=== PATIENT | male | born 1960 | race Caucasian/White ===

== ENCOUNTER 2017-11-28 15:38 | Emergency (ER) | payer OTHER ==
[~2017-11-28] VITALS: Ht 162.6 cm; Wt 82.1 kg
[~2017-11-28 15:38] MED LIST: ASPI81EC PO; FAMO20 PO; HYDACE5 PO; HYDACE7.5 PO; HYDCHL25 PO; HYDCHL50 PO; LISI20 PO; LOSHYD PO; OMEP20ER PO; PROM25 PO; RXTRAM50 PO; TRAM50 PO; TRAZ150T57 PO; TRAZ50 PO; VITNEPH PO
== END 2017-11-28 16:00 | disposition home or self-care (01) ==
LOC: ER 15:38
DX: L23.7 Allergic contact dermatitis due to plants, except food (principal); Z79.899 Other long term (current) drug therapy; I10 Essential (primary) hypertension; Z87.891 Personal history of nicotine dependence
CPT/HCPCS: 96374; 99282-25; J3301

== ENCOUNTER 2018-06-25 13:32 | Inpatient (IN) | payer OTHER ==
[~2018-06-25] VITALS: Ht 162.6 cm; Wt 74.8 kg
[2018-06-25 14:22] LABS: BASOPHILS ABSOLUTE AUTO 0.06 K/mm3 (0.00-0.23); BASOPHILS PERCENT AUTO 1 % (0-2); EOSINOPHILS ABSOLUTE AUTO 0.08 K/mm3 (0.00-0.68); EOSINOPHILS PERCENT AUTO 2 % (0-6); Hematocrit 43.4 % (37.0-53.0); Hemoglobin 13.4 g/dL (13.5-17.5); IMMATURE GRAN ABSOLUTE AUTO 0.01 K/mm3 (0.00-0.10); IMMATURE GRAN PERCENT AUTO 0 % (0-1); LYMPHOCYTES ABSOLUTE AUTO 1.31 K/mm3 (0.84-5.20); LYMPHOCYTES PERCENT AUTO 26 % (21-46); MONOCYTES ABSOLUTE AUTO 0.34 K/mm3 (0.16-1.47); MONOCYTES PERCENT AUTO 7 % (4-13); Mean Corpuscular HGB 25.8 pg (26.0-34.0); Mean Corpuscular HGB Conc 30.9 g/dL (31.5-36.5); Mean Corpuscular Volume 84 fL (80-100); Mean Platelet Volume 10.2 fL (9.1-12.4); NEUTROPHILS ABSOLUTE AUTO 3.28 K/mm3 (1.96-9.15); NEUTROPHILS PERCENT AUTO 65 % (41-73); Platelet Count 231 K/mm3 (150-400); RDW Coefficient Variation 14.9 % (11.7-14.2); RDW Standard Deviation 45.1 fL (35.1-46.3); White Blood Cell Count 5.08 K/mm3 (4.00-11.30)
[2018-06-25 14:32] LABS: Alanine Aminotransfer (ALT/SGP 34 U/L (12-78); Albumin, Blood 3.2 g/dL (3.4-5.0); Alk Phos 72 U/L (50-136); Anion Gap 6 mmol/L (6-16); Aspartate Aminotrans (AST/SGOT 39 U/L (12-37); Bilirubin, Total 0.7 mg/dL (0.1-1.0); Blood Urea Nitrogen 26 mg/dL (8-24); Bun/Creatinine Ratio 24.3 (12.0-20.0); CO2, Blood 24 mmol/L (21-32); Calcium, Blood 8.3 mg/dL (8.5-10.1); Chloride, Blood 110 mmol/L (98-108); Creatinine, Blood 1.07 mg/dL (0.60-1.20); Globulin, Blood 3.3 g/dL (2.2-4.0); Glomerular Filtration Rate >60 (60-); Glucose, Blood 139 mg/dL (70-99); Potassium, Blood 4.2 mmol/L (3.5-5.5); Sodium, Blood 140 mmol/L (136-145); Total Protein, Blood 6.5 g/dL (6.4-8.2); Troponin I 0.071 ng/mL (0.000-0.040)
--- NOTE | 2018-06-25 19:40 | NUR ---
ASSUMED CARE PT RESTING IN ROOM COMFORTABLY AT THIS TIME. PER DAY SHIFT PT ARRIVED JUST PRIOR TO SHIFT CHANGE. PT IS A0X4 AND ABLE TO AMBULATE IN ROOM W/O ASSIST. PT CAME TO ED W/ INCREASED SOB AND HIGH BNP. PT REPORTS SOME SOB W/ EXERTION. RESP EVEN UNLBAORED AT REST ON 2L NC W/ SATS >92%. DENIES PAIN AT THIS TIME. DENIES OTHER NEEDS. CALL LIGHT IS IN REACH.
--- NOTE | 2018-06-25 19:45 | NUR ---
ARRIVAL AND SHIFT SUMMARY PT ARRIVE TO UNIT APPROX. 1845 VIA [facility] PT ABLE TO TRANSFER FROM [facility] TO BED. PT BREATHING RAPID SHALLOW BREATHS ON ARRIVAL AND REPORTS FEELING SHORT OF BREATH. 2L OXYGEN VIA N.C. IN PLACE AND SATS 99-100. AFTER GETTING PT SETTLED IN BED RESIPRATORY RATE SLOWED DOWN. ORIENTED PT TO ROOM, UNIT AND POLICIES. TELEMETRY PLACE. ASSESSMENT COMPLETED AND VITAL SIGNS STABLE. PT A&OX4. PT REPORTS BEING HUNGRY AT THIS TIME AND THIS WAS ONLY COMPLIANT. NO S/SX OF ACUTE DISTRESS. BED IN LOW POSITION, CALL LIGHT IN REACH AND PT DENIES ANY NEEDS AT THIS TIME. WILL CONTINUE TO MONITOR UNTIL HANDOFF TO NIGHTSHIFT RN.
[2018-06-26 04:13] LABS: BASOPHILS ABSOLUTE AUTO 0.07 K/mm3 (0.00-0.23); BASOPHILS PERCENT AUTO 1 % (0-2); EOSINOPHILS ABSOLUTE AUTO 0.15 K/mm3 (0.00-0.68); EOSINOPHILS PERCENT AUTO 3 % (0-6); Hematocrit 42.5 % (37.0-53.0); Hemoglobin 13.3 g/dL (13.5-17.5); IMMATURE GRAN ABSOLUTE AUTO 0.01 K/mm3 (0.00-0.10); IMMATURE GRAN PERCENT AUTO 0 % (0-1); LYMPHOCYTES PERCENT AUTO 35 % (21-46); MONOCYTES PERCENT AUTO 7 % (4-13); Mean Corpuscular HGB 25.7 pg (26.0-34.0); Mean Corpuscular HGB Conc 31.3 g/dL (31.5-36.5); Mean Corpuscular Volume 82 fL (80-100); Mean Platelet Volume 10.2 fL (9.1-12.4); NEUTROPHILS ABSOLUTE AUTO 2.89 K/mm3 (1.96-9.15); NEUTROPHILS PERCENT AUTO 53 % (41-73); Platelet Count 226 K/mm3 (150-400); RDW Coefficient Variation 14.9 % (11.7-14.2); Red Blood Cell Count 5.17 M/mm3 (4.30-5.90); White Blood Cell Count 5.42 K/mm3 (4.00-11.30)
[2018-06-26 04:38] LABS: Anion Gap 7 mmol/L (6-16); Blood Urea Nitrogen 22 mg/dL (8-24); Bun/Creatinine Ratio 18.8 (12.0-20.0); CO2, Blood 27 mmol/L (21-32); Calcium, Blood 8.6 mg/dL (8.5-10.1); Chloride, Blood 104 mmol/L (98-108); Creatinine, Blood 1.17 mg/dL (0.60-1.20); Glomerular Filtration Rate >60 (60-); Glucose, Blood 104 mg/dL (70-99); Potassium, Blood 3.7 mmol/L (3.5-5.5); Sodium, Blood 138 mmol/L (136-145); Troponin I 0.086 ng/mL (0.000-0.040)
--- NOTE | 2018-06-26 06:04 | NUR ---
SHIFT SUMMARY PT SLEEPING IN ROOM COMFORTABLY AT THIS TIME. NO ACUTE CHANGES IN STATUS T/O NIGHT. PT TOOK OXYGEN OFF SOMETIME DURING NIGHT, O2 SAT CHECKED, PT SATTING AT 97% ON RA. O2 LEFT OFF OF PT AT THIS TIME. PT EDUCATED TO CALL RN IF BECOMES SOB. PT HAS HAD SIGNIFICANT URINE OUTPUT OVERNIGHT D/T LASIX. DENIES PAIN. CALL LIGHT IS IN REACH.
--- NOTE | 2018-06-26 07:55 | NUR ---
AM ASSESSMENT: Pt resting in bed. Denies pain at this time. A/O x4. LS diminished in bases. Bt positive. Pulses palp. Pt has dry cough and is tachipnic. Pt states that it has been hard to breath in sleep since he fractured his ribs last month. IV to R AC has infiltrated, will D/C and place new IV. Pt Denies other needs at this time. Will monitor. Call light in reach.
--- NOTE | 2018-06-26 09:25 | NUR ---
Echocardiogram using 0.45ml of Definity contrast performed.
--- NOTE | 2018-06-26 16:15 | NUR ---
TRANSFER: Report called to medical floor RN. Pt just out of shower. States that he had a large BM and that has lower abd hurt after he had the BM. States that pain is fine at this time. VSS. Pt still having a dry caugh and tachipnic at times. has voided a large amount of urine this shift. Pt transfered via w/c. Stable at time of transfer.
--- NOTE | 2018-06-26 17:51 | NUR ---
SHIFT SUMMARY PCU TRANSFER THIS AFTERNOON. PATIENT DENIES NAUSEA OR SHORTNESS OF BREATH. MEDICATED X 1 FOR PAIN. SETTLED INTO ROOM, EATING DINNER. CALL LIGHT IN REACH, WILL CONTINUE TO MONITOR.
--- NOTE | 2018-06-27 03:59 | NUR ---
SHIFT SUMMARY NO ACUTE CHANGES TO PRESENT THIS SHIFT. PT IS A&O, INDEPENDANT IN RM. AWAKE AT START OF SHIFT WATCHING TV AND TALKING ON PHONE. USED URINALS AT BS FREQUENTLY FIRST PART OF SHIFT. DIURETICS GIVEN EARLIER IN THE DAY. PT REPORTED SWELLING IN LEGS AND FEET "DOWN FROM WHAT THEY WERE". PT ADMITTED FOR ACUTE RESPIRATORY FAILURE WITH HX OF CHF. SPEECH SLIGHTLY SLURRED; PER SHIFT REPORT, THIS IS PT'S BASLINE. HX OF METH AND ETOH ABUSE. PT HAS BEEN PLEASANT AND CO-OP. NO C/O. REQUESTED ICE CREAM AT HS; GIVEN. GRATEFUL FOR CARE. DENIED FURTHER NEEDS. PT REPORT TYLENOL GIVEN PRIOR TO START OF NOC SHIFT; REPORTED IT EFFECTIVE. GENERAL ACHES AND PAINS. CALL LT IN REACH. ABLE TO MAKE NEEDS KNOWN.
[2018-06-27 06:04] LABS: Calcium, Blood 8.7 mg/dL (8.5-10.1); Creatinine, Blood 1.37 mg/dL (0.60-1.20); Potassium, Blood 3.6 mmol/L (3.5-5.5)
--- NOTE | 2018-06-27 15:48 | NUR ---
SHIFT SUMMARY NO ACUTE CHANGES. PATIENT INDEPENDENT IN ROOM. REPORTS COUGH IS RESOLVING. DR. MOTA CONSULTED ON PATIENT TODAY. NEW MEDICATION ORDERS GIVEN. PATIENT DENIES PAIN, NAUSEA, OR SHORTNESS OF BREATH. CALL LIGHT IN REACH, WILL CONTINUE TO MONITOR.
--- NOTE | 2018-06-27 19:07 | NUR ---
Roderick was tearful and talkative. He tells me that he has been told that he doesn't have long to live. "It's my fault. I accept that I did this to myself." He admits to using meth most of his life as well as etoh and niccotine. He was especially tearful when talking about his love for his nephew and his hope that he is alive for nephew's wedding in November. Per corporate recruiter notes from this morning, several interventions have been offered and Roderick had agreed to anything that will save his life. I suspect, after years of non-compliance and denial, Roderick may have finally realized his mortatity and judgement errors. He responded well to being heard and affirmed. He said it was "really good to finally talk to someone about all this." He appeared to feel comfortable with me and we had an easy rapport. I provided gentle assessment counselor and assurance. Encouraged making the most of his time with family and frequent expresions of love. He agreed he will do this. He smiled easily by end of visit. He is non-alevism. I will remain available.
--- NOTE | 2018-06-28 04:51 | NUR ---
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 PT AAOX3 AND INDEPENDENT IN ROOM. PT DIURESING WELL WITH A NEGATIVE FLUID BALANCE OF OVER 2000 ML. PT DOES STILL REPORT SOME SOB WHEN AMBULATING IN THE ROOM BUT ABLE TO REMAIN ON ROOM AIR. VSS, WILL CONTINUE TO MONITOR.
--- NOTE | 2018-06-28 06:20 | NUR ---
15 BEAT RUN OF V-TACH REPORTED BY CREATIVE ASSISTANT. ASSESSED PT, PT DENIES CP OR SOB. STATES "I FEEL FINE". THIS IS PT'S FIRST RUN OF V-TACH. WILL CONTINUE TO MONITOR.
--- NOTE | 2018-06-28 15:59 | NUR ---
SHIFT SUMMARY NO ACUTE CHANGES. PATIENT MEDICATED X1 FOR HEADACHE. DENIES NAUSEA OR SHORTNESS OF BREATH. POSSIBLE TRANFER TO [facility] OR POSSIBLE DISCHARGE WITH OUTPATIENT [facility] CARDIOLOGY FOLLOW UP. PATIENT INDEPENDENT IN ROOM. CALL LIGHT IN REACH, WILL CONTINUE TO MONITOR.
--- NOTE | 2018-06-29 05:39 | NUR ---
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 PT AAOX4 AND INDEPENDENT IN ROOM. NSR ON TELE. SOB AT TIMES WITH EXERTION. TREATED HEADACHE X1 WITH TYLENOL. VSS, WILL CONTINUE TO MONITOR.
[2018-06-29 06:22] LABS: Anion Gap 7 mmol/L (6-16); Blood Urea Nitrogen 27 mg/dL (8-24); Bun/Creatinine Ratio 21.8 (12.0-20.0); CO2, Blood 29 mmol/L (21-32); Calcium, Blood 8.7 mg/dL (8.5-10.1); Chloride, Blood 102 mmol/L (98-108); Creatinine, Blood 1.24 mg/dL (0.60-1.20); Glomerular Filtration Rate >60 (60-); Glucose, Blood 118 mg/dL (70-99); Potassium, Blood 3.7 mmol/L (3.5-5.5); Sodium, Blood 138 mmol/L (136-145)
[2018-06-29] MEDS ORDERED: ASPI81CH PO (13:31)
[2018-06-29] MEDS ORDERED: ATOR10 PO (13:32)
[2018-06-29] MEDS ORDERED: FURO80 PO (13:33)
[2018-06-29] MEDS ORDERED: Toprol Xl25 MG PO (13:34)
[2018-06-29] MEDS ORDERED: ENTRESTO 24 MG1 EACH PO (13:35)
[2018-06-29] MEDS ORDERED: Micro-K10 MEQ (13:36)
--- NOTE | 2018-06-29 14:15 | NUR ---
PT DISCHARGED PT DISCHARGED AT 1415. PT IN STABLE CONDITION WITH VSS. PT EDUCATED ON ED INSTRUCTIONS & FOLLOW UP APPOINTMENTS. PT INFORMED THAT [facility] REP WILL CONTACT HIM TO BE FITTED. PT STATES NO FURTHER QUESTIONS. PT WHEELED OUT & DRIVEN HOME BY FRIEND.
== END 2018-06-29 14:39 | disposition home or self-care (01) | DRG 280 ==
LOC: ER 13:32 → MEDS 17:55 → PCU 17:55 → MEDS 06-26 16:59 → ENPENDDIS 06-29 12:21 → MEDS 06-29 14:39
PROVIDERS: Internal Medicine; Physician Assistant; ADMIT Internal Medicine
DX: I13.0 Hypertensive heart and chronic kidney disease with heart failure and stage 1 through stage 4 chronic kidney disease, or unspecified chronic kidney disease (principal); I21.A1 Myocardial infarction type 2; J96.90 Respiratory failure, unspecified, unspecified whether with hypoxia or hypercapnia; I50.43 Acute on chronic combined systolic (congestive) and diastolic (congestive) heart failure; Q25.1 Coarctation of aorta; N17.9 Acute kidney failure, unspecified; N18.2 Chronic kidney disease, stage 2 (mild); B18.2 Chronic viral hepatitis C; F10.10 Alcohol abuse, uncomplicated; F15.10 Other stimulant abuse, uncomplicated; F19.10 Other psychoactive substance abuse, uncomplicated; I25.10 Atherosclerotic heart disease of native coronary artery without angina pectoris; I27.20 Pulmonary hypertension, unspecified; I35.1 Nonrheumatic aortic (valve) insufficiency; I42.9 Cardiomyopathy, unspecified; I71.9 Aortic aneurysm of unspecified site, without rupture; Z91.14 Patient's other noncompliance with medication regimen; Z91.19 Patient's noncompliance with other medical treatment and regimen; Z95.2 Presence of prosthetic heart valve; E66.9 Obesity, unspecified; Z87.891 Personal history of nicotine dependence; Z68.32 Body mass index [BMI] 32.0-32.9, adult; K21.9 Gastro-esophageal reflux disease without esophagitis
CPT/HCPCS: 36415; 71260; 80048; 80053; 83880; 84484; 85025; 93005; 93010; 96374-59; 96375-59; 99285-25; A9270; C8929; J1650; J1940; Q9957; Q9967

== ENCOUNTER → 2018-07-02 | Outpatient (CLI) | payer OTHER ==
[~2018-07-02] MED LIST changes: +ASPI81CH PO; +ATOR10 PO; +ENTRESTO 24 MG1 EACH PO; +FURO80 PO; +Micro-K10 MEQ; +Toprol Xl25 MG PO
[2018-07-02 15:13] LABS: Source, Urine Clean Catch
[2018-07-02 16:03] LABS: Bilirubin, Urine Neg (Neg); Blood, Urine 5+ (Neg); Glucose Qualitative, Urine Neg (Neg); Ketones, Urine 1+ (Neg); Leukocyte Esterase, Urine 1+ (Neg); Nitrite, Urine Neg (Neg); Protein, Urine 2+ (Neg); Urobilinogen, Urine 1+ (Normal)
[2018-07-02 16:19] LABS: Appearance, Urine Clear (Clear); Color, Urine Yellow (P-Yellow)
[2018-07-02 16:23] LABS: Mucus Light (0-Heavy); Red Blood Cells, Urine TNTC /hpf (0-2)
[2018-07-02 16:24] LABS: Bacteria Few /hpf; Squamous Epithelial Cells Not Seen /hpf (Few)
== END | disposition home or self-care (01) ==
LOC: LAB 15:12 → LAB SHORT 15:12
PROVIDERS: Nurse Practitioner
DX: R31.9 Hematuria, unspecified (principal)
CPT/HCPCS: 81001; 87086

== ENCOUNTER 2019-03-07 09:17 | Inpatient (IN) | payer OTHER ==
[~2019-03-07] VITALS: Ht 162.6 cm; Wt 86.1 kg
[~2019-03-07 09:17] MED LIST changes: -ASPI81CH PO; +Aspir 8181 MG PO; -Micro-K10 MEQ; +Micro-K10 MEQ PO
[2019-03-07 09:49] LABS: BASOPHILS ABSOLUTE AUTO 0.06 K/mm3 (0.00-0.23); BASOPHILS PERCENT AUTO 1 % (0-2); EOSINOPHILS ABSOLUTE AUTO 0.21 K/mm3 (0.00-0.68); EOSINOPHILS PERCENT AUTO 4 % (0-6); Hematocrit 42.5 % (37.0-53.0); Hemoglobin 13.9 g/dL (13.5-17.5); IMMATURE GRAN ABSOLUTE AUTO 0.03 K/mm3 (0.00-0.10); IMMATURE GRAN PERCENT AUTO 1 % (0-1); LYMPHOCYTES ABSOLUTE AUTO 1.07 K/mm3 (0.84-5.20); LYMPHOCYTES PERCENT AUTO 18 % (21-46); MONOCYTES ABSOLUTE AUTO 0.34 K/mm3 (0.16-1.47); MONOCYTES PERCENT AUTO 6 % (4-13); Mean Corpuscular HGB 28.5 pg (26.0-34.0); Mean Corpuscular HGB Conc 32.7 g/dL (31.5-36.5); Mean Corpuscular Volume 87 fL (80-100); Mean Platelet Volume 10.1 fL (9.1-12.4); NEUTROPHILS ABSOLUTE AUTO 4.13 K/mm3 (1.96-9.15); NEUTROPHILS PERCENT AUTO 71 % (41-73); Platelet Count 234 K/mm3 (150-400); RDW Coefficient Variation 13.9 % (11.7-14.2); Red Blood Cell Count 4.87 M/mm3 (4.30-5.90); White Blood Cell Count 5.84 K/mm3 (4.00-11.30)
[2019-03-07 10:10] LABS: Alanine Aminotransfer (ALT/SGP 35 U/L (12-78); Albumin, Blood 3.4 g/dL (3.4-5.0); Albumin/Globulin Ratio 0.9 (0.8-1.8); Alk Phos 57 U/L (50-136); Anion Gap 7 mmol/L (6-16); Aspartate Aminotrans (AST/SGOT 29 U/L (12-37); Bilirubin, Total 1.2 mg/dL (0.1-1.0); Blood Urea Nitrogen 15 mg/dL (8-24); Bun/Creatinine Ratio 13.9 (12.0-20.0); CO2, Blood 28 mmol/L (21-32); Calcium, Blood 9.3 mg/dL (8.5-10.1); Chloride, Blood 107 mmol/L (98-108); Creatinine, Blood 1.08 mg/dL (0.60-1.20); Globulin, Blood 3.7 g/dL (2.2-4.0); Glomerular Filtration Rate >60 (60-); Glucose, Blood 150 mg/dL (70-99); Potassium, Blood 3.4 mmol/L (3.5-5.5); Sodium, Blood 142 mmol/L (136-145); Total Protein, Blood 7.1 g/dL (6.4-8.2); Troponin I 0.236 ng/mL (0.000-0.040)
[2019-03-07 11:39] LABS: Magnesium, Blood 1.7 mg/dL (1.6-2.4)
[2019-03-07 11:40] LABS: Thyroid Stimulating Hormone 0.931 uIU/mL (0.360-4.800)
[2019-03-07] MEDS ORDERED: CARVEDILOL12.5 MG PO (12:17)
[2019-03-07] MEDS ORDERED: Ventolin/Prove6.7 GM INH (12:18)
[2019-03-07] MEDS ORDERED: METFORMIN HCL500 M2 PO (12:18)
[2019-03-07] MEDS ORDERED: LOSARTAN POTASS25 M2 PO (12:19)
[2019-03-07] MEDS ORDERED: OMEP20ER PO (12:20)
[2019-03-07 18:17] LABS: Source, Urine Clean Catch
[2019-03-07 18:22] LABS: Bilirubin, Urine Neg (Neg); Blood, Urine Neg (Neg); Glucose Qualitative, Urine Neg (Neg); Ketones, Urine Neg (Neg); Leukocyte Esterase, Urine Neg (Neg); Nitrite, Urine Neg (Neg); Protein, Urine Neg (Neg); Urobilinogen, Urine NORM (Normal)
[2019-03-07 18:32] LABS: Appearance, Urine Clear (Clear); Color, Urine Pale Yellow (P-Yellow)
[2019-03-07 18:38] LABS: U Amphetamine Screen Not Detected; U Barbituate Screen Not Detected; U Benzodiazapine Screen Not Detected; U Buprenorphine Screen Not Detected; U Cannabinoids Screen Not Detected; U Cocaine Screen Not Detected; U Methadone Screen Not Detected; U Methamphetamine Screen Not Detected; U Opiates Screen Not Detected; U Oxycodone Screen Not Detected; U Phencyclidine Screen Not Detected; U Propoxyphene Screen Not Detected
[2019-03-08 04:26] LABS: BASOPHILS ABSOLUTE AUTO 0.07 K/mm3 (0.00-0.23); BASOPHILS PERCENT AUTO 1 % (0-2); EOSINOPHILS ABSOLUTE AUTO 0.25 K/mm3 (0.00-0.68); EOSINOPHILS PERCENT AUTO 4 % (0-6); Hematocrit 42.9 % (37.0-53.0); Hemoglobin 14.2 g/dL (13.5-17.5); IMMATURE GRAN ABSOLUTE AUTO 0.03 K/mm3 (0.00-0.10); IMMATURE GRAN PERCENT AUTO 1 % (0-1); LYMPHOCYTES PERCENT AUTO 23 % (21-46); MONOCYTES ABSOLUTE AUTO 0.38 K/mm3 (0.16-1.47); MONOCYTES PERCENT AUTO 6 % (4-13); Mean Corpuscular HGB 28.5 pg (26.0-34.0); Mean Corpuscular HGB Conc 33.1 g/dL (31.5-36.5); Mean Corpuscular Volume 86 fL (80-100); Mean Platelet Volume 10.1 fL (9.1-12.4); NEUTROPHILS ABSOLUTE AUTO 4.35 K/mm3 (1.96-9.15); NEUTROPHILS PERCENT AUTO 66 % (41-73); Platelet Count 249 K/mm3 (150-400); RDW Coefficient Variation 13.9 % (11.7-14.2); RDW Standard Deviation 41.8 fL (35.1-46.3); Red Blood Cell Count 4.98 M/mm3 (4.30-5.90); White Blood Cell Count 6.58 K/mm3 (4.00-11.30)
[2019-03-08 04:50] LABS: Alanine Aminotransfer (ALT/SGP 29 U/L (12-78); Albumin, Blood 3.1 g/dL (3.4-5.0); Albumin/Globulin Ratio 0.8 (0.8-1.8); Alk Phos 53 U/L (50-136); Anion Gap 7 mmol/L (6-16); Aspartate Aminotrans (AST/SGOT 24 U/L (12-37); Bilirubin, Total 1.4 mg/dL (0.1-1.0); Blood Urea Nitrogen 20 mg/dL (8-24); Bun/Creatinine Ratio 18.3 (12.0-20.0); CO2, Blood 29 mmol/L (21-32); Chloride, Blood 103 mmol/L (98-108); Creatinine, Blood 1.09 mg/dL (0.60-1.20); Globulin, Blood 3.9 g/dL (2.2-4.0); Glomerular Filtration Rate >60 (60-); Glucose, Blood 127 mg/dL (70-99); Potassium, Blood 3.5 mmol/L (3.5-5.5); Sodium, Blood 139 mmol/L (136-145)
[2019-03-10 05:10] LABS: Anion Gap 6 mmol/L (6-16); Blood Urea Nitrogen 34 mg/dL (8-24); Bun/Creatinine Ratio 31.8 (12.0-20.0); CO2, Blood 28 mmol/L (21-32); Calcium, Blood 8.4 mg/dL (8.5-10.1); Chloride, Blood 101 mmol/L (98-108); Creatinine, Blood 1.07 mg/dL (0.60-1.20); Glomerular Filtration Rate >60 (60-); Glucose, Blood 186 mg/dL (70-99); Potassium, Blood 4.3 mmol/L (3.5-5.5); Sodium, Blood 135 mmol/L (136-145)
[2019-03-10 16:07] LABS: Source, Urine Clean Catch
[2019-03-10 16:20] LABS: Appearance, Urine Clear (Clear); Bilirubin, Urine Neg (Neg); Blood, Urine Neg (Neg); Color, Urine Yellow (P-Yellow); Glucose Qualitative, Urine Neg (Neg); Ketones, Urine Neg (Neg); Leukocyte Esterase, Urine Neg (Neg); Nitrite, Urine Neg (Neg); Protein, Urine 1+ (Neg); Urobilinogen, Urine NORM (Normal)
[2019-03-11 05:26] LABS: BASOPHILS ABSOLUTE AUTO 0.05 K/mm3 (0.00-0.23); BASOPHILS PERCENT AUTO 1 % (0-2); EOSINOPHILS ABSOLUTE AUTO 0.06 K/mm3 (0.00-0.68); EOSINOPHILS PERCENT AUTO 1 % (0-6); Hematocrit 46.4 % (37.0-53.0); Hemoglobin 15.3 g/dL (13.5-17.5); IMMATURE GRAN ABSOLUTE AUTO 0.03 K/mm3 (0.00-0.10); IMMATURE GRAN PERCENT AUTO 0 % (0-1); LYMPHOCYTES ABSOLUTE AUTO 2.24 K/mm3 (0.84-5.20); LYMPHOCYTES PERCENT AUTO 27 % (21-46); MONOCYTES ABSOLUTE AUTO 0.48 K/mm3 (0.16-1.47); MONOCYTES PERCENT AUTO 6 % (4-13); Mean Corpuscular HGB 28.2 pg (26.0-34.0); Mean Corpuscular Volume 86 fL (80-100); Mean Platelet Volume 10.1 fL (9.1-12.4); NEUTROPHILS PERCENT AUTO 66 % (41-73); Platelet Count 292 K/mm3 (150-400); RDW Coefficient Variation 13.9 % (11.7-14.2); Red Blood Cell Count 5.42 M/mm3 (4.30-5.90); White Blood Cell Count 8.36 K/mm3 (4.00-11.30)
[2019-03-11 05:38] LABS: Anion Gap 5 mmol/L (6-16); Blood Urea Nitrogen 25 mg/dL (8-24); Bun/Creatinine Ratio 27.7 (12.0-20.0); CO2, Blood 28 mmol/L (21-32); Calcium, Blood 8.4 mg/dL (8.5-10.1); Chloride, Blood 104 mmol/L (98-108); Glomerular Filtration Rate >60 (60-); Glucose, Blood 121 mg/dL (70-99); Potassium, Blood 4.4 mmol/L (3.5-5.5); Sodium, Blood 137 mmol/L (136-145)
[2019-03-11] MEDS ORDERED: FURO40 PO (13:02)
[2019-03-11] MEDS ORDERED: XARELTO20 MG PO (13:03)
[2019-03-11] MEDS ORDERED: METO50ER PO (13:03)
[2019-03-11] MEDS ORDERED: ENTRESTO 24 MG1 EACH PO (13:04)
[2019-03-11] MEDS ORDERED: MUPIROCIN1 GM TOP (13:06)
== END 2019-03-11 13:28 | disposition home or self-care (01) | DRG 280 ==
LOC: ER 09:17 → PCU 11:48 → MEDS 03-09 13:30
PROVIDERS: Emergency Medicine; Internal Medicine; Nurse Practitioner Acute Care; ADMIT Family Medicine
PROC: 5A2204Z Restoration of Cardiac Rhythm, Single (ICD-10-PCS; principal; 2019-03-08)
DX: I48.92 Unspecified atrial flutter (principal); I50.23 Acute on chronic systolic (congestive) heart failure; I21.A1 Myocardial infarction type 2; Q25.1 Coarctation of aorta; Z79.82 Long term (current) use of aspirin; Z95.2 Presence of prosthetic heart valve; Z87.891 Personal history of nicotine dependence; Z91.19 Patient's noncompliance with other medical treatment and regimen; Z91.14 Patient's other noncompliance with medication regimen; B18.2 Chronic viral hepatitis C; F15.10 Other stimulant abuse, uncomplicated; E66.9 Obesity, unspecified; I71.2 Thoracic aortic aneurysm, without rupture; E87.6 Hypokalemia; Z68.33 Body mass index [BMI] 33.0-33.9, adult; M10.9 Gout, unspecified; I42.9 Cardiomyopathy, unspecified; I27.20 Pulmonary hypertension, unspecified; Z59.0 Homelessness
CPT/HCPCS: 36415; 71046; 73620; 80048; 80053; 81003; 82947; 83735; 83880; 84443; 84484; 84550; 85025; 87081; 90686; 92960; 93005; 93010; 93312; 93325; 94640; 94760; 96374; 96375; 99285-25; A9270; C8929; G0008; J1650; J1940; J2704; J2930; J7030; J7040; Q9957

== ENCOUNTER → 2019-10-30 | Outpatient (CLI) | payer OTHER ==
[~2019-10-30] MED LIST changes: +CARVEDILOL12.5 MG PO; +FURO40 PO; +LOSARTAN POTASS25 M2 PO; +METFORMIN HCL500 M2 PO; +METO50ER PO; +MUPIROCIN1 GM TOP; +Norco 10-325 T1 EACH PO; +Ventolin/Prove6.7 GM INH; +XARELTO20 MG PO
== END ==
LOC: LAB 13:21 → LAB SHORT 13:21
DX: L02.414 Cutaneous abscess of left upper limb (principal); F19.11 Other psychoactive substance abuse, in remission
CPT/HCPCS: 87070; 87075; 87205